=== PATIENT | male | born 2000 | race American Indian/Alaskan Native ===

== ENCOUNTER 2021-05-03 11:01 | Emergency (ER) | payer SELFPAY ==
[2021-05-03] MEDS ORDERED: ONDANSETRON 4 MG/2 ML INJ IV ONE (11:17)
[2021-05-03] MEDS ORDERED: SODIUM CHLORIDE 0.9% 1000 ML 1,000 ML IV ONE (11:17)
--- NOTE | 2021-05-03 11:17 | Emergency Department Report ---
ED N/V/D HPI - General Stated complaint: DIFFICULTY BREATHING/VOMITTING/BODY PAIN Time Seen by Provider: 05/03/21 11:10 - History of Present Illness Initial comments: Patient presents with respiratory symptoms assessment nausea and vomiting. He just does not feel well. He reports muscle aches and body aches. He has been sick for a couple of days now. He came here for evaluation. There is no hemoptysis or coffee-ground emesis. He has no hematemesis. He has not been out of the country. He has had no sick contacts. He does not know if he has coronavirus with the flu. He does not know if he has something else. Regardless, he came here. He denies eating anything that tasted bad unusual. He has not had vaccinations for influenza or Covid at this time. - Related Data Previous Rx's Medication Instructions Recorded Last Taken Type Guaifenesin/Pseudoephedrne HCl 1 each PO BID #20 tab.er.12h 05/03/21 Unknown Rx [Mucinex D ER Tablet] Ibuprofen [Motrin] 600 mg PO Q8H PRN #20 tablet 05/03/21 Unknown Rx Ondansetron [Zofran ODT TAB] 8 mg PO Q8HR PRN #20 tab.rapdis 05/03/21 Unknown Rx Allergies Allergy/AdvReac Type Severity Reaction Status Date / Time No Known Allergies Allergy Unverified 05/03/21 12:06 ED Review of Systems ROS: Stated complaint: DIFFICULTY BREATHING/VOMITTING/BODY PAIN Other details as noted in HPI Comment: All other systems reviewed and negative Constitutional: fever (Subjective) Eyes: denies: eye pain ENT: denies: throat pain Respiratory: denies: wheezing Cardiovascular: denies: chest pain Endocrine: denies: unexplained weight loss Gastrointestinal: as per HPI Genitourinary: denies: hematuria Musculoskeletal: denies: back pain Skin: denies: rash Neurological: denies: headache Hematological/Lymphatic: denies: easy bruising ED Past Medical Hx - Past Medical History Previous Medical History?: No - Family History Family history: no significant - Medications Home Medications: Home Medications Medication Instructions Recorded Confirmed Last Taken Type Guaifenesin/Pseudoephedrne HCl 1 each PO BID #20 tab.er.12h 05/03/21 Unknown Rx [Mucinex D ER Tablet] Ibuprofen [Motrin] 600 mg PO Q8H PRN #20 tablet 05/03/21 Unknown Rx Ondansetron [Zofran ODT TAB] 8 mg PO Q8HR PRN #20 tab.rapdis 05/03/21 Unknown Rx ED Physical Exam - General Limitations: No Limitations, Other ( pulse ox noted and normal) General appearance: alert, in no apparent distress - Head Head exam: Present: atraumatic, normocephalic - Eye Eye exam: Present: normal appearance, EOMI - ENT ENT exam: Present: mucous membranes dry, normal external ear exam - Neck Neck exam: Present: normal inspection. Absent: meningismus - Respiratory Respiratory exam: Present: normal lung sounds bilaterally. Absent: respiratory distress - Cardiovascular Cardiovascular Exam: Present: regular rate, normal rhythm - GI/Abdominal GI/Abdominal exam: Present: soft, tenderness ( mild diffuse). Absent: guarding, rebound - Extremities Exam Extremities exam: Present: normal capillary refill - Back Exam Back exam: Absent: CVA tenderness (R), CVA tenderness (L) - Neurological Exam Neurological exam: Present: alert, oriented X3, CN II-XII intact, normal gait - Psychiatric Psychiatric exam: Present: normal affect, normal mood - Skin Skin exam: Present: warm, dry ED Course Vital Signs 05/03/21 05/03/21 05/03/21 12:08 12:16 12:30 Pulse Rate 55 L 57 L 55 L Respiratory 14 20 19 Rate Blood Pressure 131/88 131/88 128/72 O2 Sat by Pulse 99 97 99 Oximetry 05/03/21 05/03/21 05/03/21 12:46 13:00 13:16 Pulse Rate 71 68 57 L Respiratory 17 17 18 Rate Blood Pressure 128/72 142/90 142/90 O2 Sat by Pulse 100 98 98 Oximetry 05/03/21 05/03/21 05/03/21 13:30 13:46 14:00 Pulse Rate 65 63 78 Respiratory 23 19 15 Rate Blood Pressure 139/82 139/82 129/67 O2 Sat by Pulse 100 98 99 Oximetry 05/03/21 14:16 Pulse Rate Respiratory Rate Blood Pressure 129/67 O2 Sat by Pulse 98 Oximetry - Reevaluation(s) Reevaluation #1: 05/03/21 11:17 IV labs ordered. Records reviewed. Reevaluation #2: 05/03/21 15:55 labs are noted and the patient was discharged ED Medical Decision Making - Lab Data Result diagrams: 05/03/21 11:26 05/03/21 11:26 - Medical Decision Making patient presents with GI symptoms along with some degree of viral syndrome. He certainly could have coronavirus. He does not seem to have any significant respiratory component. With elevated LFTs, this could also be some form of viral hepatitis or food poisoning. We discussed this. Patient is comfortable w [facility] outpatient follow-up. He does not have intractable pain or vomiting. He does not appear toxic. Critical Care Time: No Critical care attestation.: If time is entered above; I have spent that time in minutes in the direct care of this critically ill patient, excluding procedure time. ED Disposition Clinical Impression: Viral syndrome, Acute URI Disposition: HOME / SELF CARE / HOMELESS Is pt being admited?: No Condition: Stable Instructions: Cough, Adult, [id number], Viral Respiratory Infection, [id number], Viral Illness, Adult Additional Instructions: Push fluids. Alternate Tylenol and ibuprofen at home for fever. Return for problems. Follow-up with your regular doctor for recheck and further management. Have a bland diet. Prescriptions: Ibuprofen [Motrin] 600 mg PO Q8H PRN #20 tablet PRN Reason: Pain Guaifenesin/Pseudoephedrne HCl [Mucinex D ER Tablet] 1 each PO BID #20 tab.er.12h Ondansetron [Zofran ODT TAB] 8 mg PO Q8HR PRN #20 tab.rapdis PRN Reason: Nausea Referrals: PRIMARY CARE, [Primary Care Provider] - 3-5 Days
[2021-05-03 11:49] LABS: Hematocrit 45.2 % (35.5-45.6); Hemoglobin 15.2 gm/dl (11.8-15.2); Mean Corpuscular HGB Conc 34 % (32-34); Mean Corpuscular Volume 105 fl (84-94); Platelet Count 337 K/mm3 (140-440); Red Blood Count 4.31 M/mm3 (3.65-5.03); Red Cell Distribution Width 13.1 % (13.2-15.2)
[2021-05-03 11:57] LABS: Alanine Aminotransferase 97 units/L (7-56); Albumin 4.2 g/dL (3.9-5); Blood Urea Nitrogen 6 mg/dL (9-20); Calcium 9.1 mg/dL (8.4-10.2); Hemolysis Index 14
[2021-05-03 12:08] LABS: BUN/Creatinine Ratio 10
[2021-05-03 14:03] VITALS: BP 129/67
== END 2021-05-03 14:34 | disposition home or self-care (01) ==
LOC: ED 11:01
DX: B34.9 Viral infection, unspecified (principal); J06.9 Acute upper respiratory infection, unspecified
CPT/HCPCS: 36415; 80053; 83690; 85027; 96361; 96374; 99283; J2405; J7030; Q0162

== ENCOUNTER 2021-07-31 16:31 | Emergency (ER) | payer SELFPAY ==
[2021-07-31] MEDS ORDERED: LORazepam 2 MG/ML VIAL IV ONE ×2 (16:43→19:21)
[2021-07-31] MEDS ORDERED: SODIUM CHLORIDE 0.9% 1000 ML 1,000 ML IV ONE ×3 (16:44→19:21)
--- NOTE | 2021-07-31 16:53 | Emergency Department Report ---
HPI - HPI HPI: Room 5 The patient is a 20-year-old male present with a chief complaint of drug overdose. Patient is a poor historian and initially told EMS that he was smoking marijuana when he began feeling as though his "body is shutting down." Patient reports in the ED that he possibly took too much ecstasy. When this incongruency was pointed out the patient replies I do not know I am so confused I do not know what I took. Patient admits to feeling shortness of breath and hurting anywhere he is touched. <RADHA MIMS - Last Filed: 07/31/21 19:10> <ASH FISHER - Last Filed: 07/31/21 21:58> - General Chief Complaint: Overdose Time Seen by Provider: 07/31/21 16:39 ED Past Medical Hx - Past Medical History Previous Medical History?: No - Surgical History Past Surgical History?: No - Family History Family history: no significant - Social History Smoking Status: Current Some Day Smoker Substance Use Type: Alcohol ("A lot"), Marijuana <RADHA MIMS - Last Filed: 07/31/21 19:10> <ASH FISHER - Last Filed: 07/31/21 21:58> - Medications Home Medications: Home Medications Medication Instructions Recorded Confirmed Last Taken Type Guaifenesin/Pseudoephedrne HCl 1 each PO BID #20 tab.er.12h 05/03/21 Unknown Rx [Mucinex D ER Tablet] Ibuprofen [Motrin] 600 mg PO Q8H PRN #20 tablet 05/03/21 Unknown Rx Ondansetron [Zofran ODT TAB] 8 mg PO Q8HR PRN #20 tab.rapdis 05/03/21 Unknown Rx ED Review of Systems ROS: Stated complaint: ANXIETY/DRUG USE Other details as noted in HPI Comment: Unobtainable due to pts medical conditions <RADHA MIMS - Last Filed: 07/31/21 19:10> ROS: Stated complaint: ANXIETY/DRUG USE Other details as noted in HPI <ASH FISHER - Last Filed: 07/31/21 21:58> Physical Exam - Physical Exam Vital Signs: Vital Signs 07/31/21 16:32 Temperature 98.3 F Pulse Rate 112 H Respiratory 20 Rate Blood Pressure 151/100 [Left] O2 Sat by Pulse 99 Oximetry Physical Exam: GENERAL: The patient is well-developed well-nourished male lying on stretcher appearing anxious. Pressured speech and restless HEENT: Normocephalic. Atraumatic. Extraocular motions are intact. Patient has moist mucous membranes. NECK: Supple. Trachea midline CHEST/LUNGS: Clear to auscultation. There is no respiratory distress noted. HEART/CARDIOVASCULAR: Regular. There is tachycardia. There is no gallop rub or murmur. ABDOMEN: Abdomen is soft, nontender. Patient has normal bowel sounds. There is no abdominal distention. SKIN: There is no rash. There is no edema. There is no diaphoresis. NEURO: The patient is awake and alert. The patient is very anxious. The patient has no focal neurologic deficits. The patient has pressured speech. MUSCULOSKELETAL: There is no evidence of acute injury. <RADHA MIMS - Last Filed: 07/31/21 19:10> - Physical Exam Vital Signs: Vital Signs 07/31/21 07/31/21 07/31/21 16:32 16:45 17:01 Temperature 98.3 F Pulse Rate 112 H 144 H 122 H Respiratory 20 34 H 17 Rate Blood Pressure 131/75 Blood Pressure 151/100 [Left] O2 Sat by Pulse 99 99 98 Oximetry 07/31/21 07/31/21 07/31/21 17:14 17:15 17:31 Temperature Pulse Rate 144 H 175 H Respiratory 20 40 H 33 H Rate Blood Pressure 130/77 136/77 Blood Pressure [Left] O2 Sat by Pulse 99 99 Oximetry 07/31/21 07/31/21 07/31/21 17:39 17:45 18:01 Temperature Pulse Rate 115 H 94 H 101 H Respiratory 19 17 26 H Rate Blood Pressure 130/70 131/71 Blood Pressure 130/70 [Left] O2 Sat by Pulse 98 95 96 Oximetry 07/31/21 18:15 Temperature Pulse Rate 139 H Respiratory 24 Rate Blood Pressure 124/69 Blood Pressure [Left] O2 Sat by Pulse 99 Oximetry <ASH FISHER - Last Filed: 07/31/21 21:58> ED Course Vital Signs 07/31/21 16:32 Temperature 98.3 F Pulse Rate 112 H Respiratory 20 Rate Blood Pressure 151/100 [Left] O2 Sat by Pulse 99 Oximetry <RADHA MIMS - Last Filed: 07/31/21 19:10> Vital Signs 07/31/21 07/31/21 07/31/21 16:32 16:45 17:01 Temperature 98.3 F Pulse Rate 112 H 144 H 122 H Respiratory 20 34 H 17 Rate Blood Pressure 131/75 Blood Pressure 151/100 [Left] O2 Sat by Pulse 99 99 98 Oximetry 07/31/21 07/31/21 07/31/21 17:14 17:15 17:31 Temperature Pulse Rate 144 H 175 H Respiratory 20 40 H 33 H Rate Blood Pressure 130/77 136/77 Blood Pressure [Left] O2 Sat by Pulse 99 99 Oximetry 07/31/21 07/31/21 07/31/21 17:39 17:45 18:01 Temperature Pulse Rate 115 H 94 H 101 H Respiratory 19 17 26 H Rate Blood Pressure 130/70 131/71 Blood Pressure 130/70 [Left] O2 Sat by Pulse 98 95 96 Oximetry 07/31/21 18:15 Temperature Pulse Rate 139 H Respiratory 24 Rate Blood Pressure 124/69 Blood Pressure [Left] O2 Sat by Pulse 99 Oximetry <PHILLIPASH - Last Filed: 07/31/21 21:58> ED Medical Decision Making - Lab Data Result diagrams: 07/31/21 16:48 07/31/21 16:48 - EKG Data -: EKG Interpreted by Me EKG shows normal: sinus rhythm Rate: tachycardia (139 bpm) - EKG Data When compared to previous EKG there are: previous EKG unavailable Interpretation: nonspecific ST-T wave blair (T wave inversion in lead aVL) - Radiology Data Radiology results: report reviewed (Chest x-ray), image reviewed (Chest x-ray) interpreted by me: Chest x-ray-no definite focal infiltrate, no pneumothorax [facility] [address] [place] [address] XRay Report Signed Patient: ROSA GOODE JR MR#: [id number] : 2000 Acct:[id number] Age/Sex: 20 / M ADM Date: 07/31/21 Loc: ED Attending Dr: Ordering Physician: RADHA MIMS MD Date of Service: 07/31/21 Procedure(s): XR chest 1V ap Accession Number(s): [id number] cc: RADHA MIMS MD Fluoro Time In Minutes: CHEST 1 VIEW 07/31/2021 4:35 PM INDICATION / CLINICAL INFORMATION: Shortness of breath. COMPARISON: None available. FINDINGS: SUPPORT DEVICES: None. HEART / MEDIASTINUM: No significant abnormality. LUNGS / PLEURA: No significant pulmonary or pleural abnormality. No pneumothorax. ADDITIONAL FINDINGS: No significant additional findings. IMPRESSION: 1. No acute findings. Signer Name: Abdias Meyer DO Signed: 07/31/2021 5:42 PM Workstation Name: [id number] Transcribed By: WOJCIECH Dictated By: ABDIAS MEYER DO Electronically Authenticated By: ABDIAS MEYER DO Signed Date/Time: 07/31/211741 DD/ 41 TD/TT: - Differential Diagnosis Substance abuse, intoxication, <RADHA MIMS - Last Filed: 07/31/21 19:10> - Lab Data Result diagrams: 07/31/21 16:48 07/31/21 16:48 - Medical Decision Making UDS positive for methamphetamine and marijuana. Patient's tachycardia resolved. Uncles at the bedside to take patient home. Patient has metabolic acidosis with increased anion gap. I suspect starvation ketosis. Patient is homeless. I suspect he has limited access to food. Uncle has agreed to take care of him for the time being. <ASH FISHER - Last Filed: 07/31/21 21:58> Critical care attestation.: If time is entered above; I have spent that time in minutes in the direct care of this critically ill patient, excluding procedure time. <RADHA MIMS - Last Filed: 07/31/21 19:10> Critical care attestation.: If time is entered above; I have spent that time in minutes in the direct care of this critically ill patient, excluding procedure time. <ASH FISHER - Last Filed: 07/31/21 21:58> ED Disposition <RADHA MIMS - Last Filed: 07/31/21 19:10> Is pt being admited?: No Does the pt Need Aspirin: No <ASH FISHER - Last Filed: 07/31/21 21:58> Clinical Impression: Amphetamine abuse, Acute encephalopathy, Marijuana dependence, Dehydration Disposition: 01 HOME / SELF CARE / HOMELESS Condition: Stable Instructions: Amphetamines Use Disorder, Substance Use Disorder Additional Instructions: Return to the emergency department should you develop worsening symptoms, inability to tolerate food or liquids, high fever or any other concerns Referrals: PRIMARY CARE, [Primary Care Provider] - 3-5 Days
[2021-07-31 17:23] LABS: Basophils % (Auto) 0.3 % (0.0-1.8); Hematocrit 44.6 % (35.5-45.6); Hemoglobin 15.2 gm/dl (11.8-15.2); Lymphocytes # (Auto) 1.1 K/mm3 (1.2-5.4); Lymphocytes % (Auto) 9.4 % (13.4-35.0); Mean Corpuscular HGB Conc 34 % (32-34); Mean Corpuscular Volume 107 fl (84-94); Monocytes # (Auto) 0.9 K/mm3 (0.0-0.8); Monocytes % (Auto) 7.5 % (0.0-7.3); Platelet Count 397 K/mm3 (140-440); Red Blood Count 4.19 M/mm3 (3.65-5.03); Red Cell Distribution Width 12.8 % (13.2-15.2)
[2021-07-31 17:33] LABS: INR 1.03 (0.87-1.13)
[2021-07-31 17:36] LABS: Alanine Aminotransferase 36 units/L (7-56); Albumin 4.6 g/dL (3.9-5); BUN/Creatinine Ratio 9; Blood Urea Nitrogen 7 mg/dL (9-20); Calcium 9.6 mg/dL (8.4-10.2); Hemolysis Index 4
--- NOTE | 2021-07-31 17:46 | XRay Report ---
CHEST 1 VIEW 07/31/2021 4:35 PM INDICATION / CLINICAL INFORMATION: Shortness of breath. COMPARISON: None available. FINDINGS: SUPPORT DEVICES: None. HEART / MEDIASTINUM: No significant abnormality. LUNGS / PLEURA: No significant pulmonary or pleural abnormality. No pneumothorax. ADDITIONAL FINDINGS: No significant additional findings. IMPRESSION: 1. No acute findings. Signer Name: Abdias Holman DO Signed: 07/31/2021 5:42 PM Workstation Name: [id number]
[2021-07-31] MEDS ORDERED: POTASSIUM CHLORIDE ER 20 MEQ TAB PO ONE (18:03)
[2021-07-31 18:52] LABS: Benzodiazepines Screen,Urine Negative; Cocaine Screen,Urine Negative; Methadone Screen,Urine Negative; Opiate Screen,Urine Negative
[2021-07-31 19:29] LABS: Amphetamine Screen,Urine PRESUMPTIVE POSITIVE; Cannabinoid Screen,Urine PRESUMPTIVE POSITIVE
[2021-07-31 22:25] VITALS: BP 116/78
--- NOTE | 2021-08-01 09:17 | Electrocardiograph Report ---
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
== END 2021-07-31 22:28 | disposition home or self-care (01) ==
LOC: ED 16:31
DX: G93.40 Encephalopathy, unspecified (principal); E86.0 Dehydration; F15.10 Other stimulant abuse, uncomplicated; F12.20 Cannabis dependence, uncomplicated; F17.200 Nicotine dependence, unspecified, uncomplicated; Z72.89 Other problems related to lifestyle; Z79.899 Other long term (current) drug therapy
CPT/HCPCS: 36415; 71045; 80053; 80307; 82550; 82553; 84484; 85025; 85379; 85610; 93005; 96361; 96374; 96376; 99284; J2060; J7030; 80320; Q0162; G0480